=== PATIENT | male | born 1960 | race Caucasian/White ===

== ENCOUNTER → 2017-02-26 | Day surgery (SDC) | payer OTHER ==
[~2017-02-26] VITALS: Ht 175.3 cm; Wt 133.0 kg
[~2017-02-26] MED LIST: ATOR20TA15 PO; BUPIVACAINE HCL PF 0.5% 30 ML VIAL ONE; CHLORHEXIDINE GLUCONATE 2 % 1 PACK (2 CLOTHS) TOPICAL PRN; CHOL1CAP24 PO; CYCL7.5T33 PO; EMPA1TAB3 PO; EXENINJ SQ; GABA300C5 PO; GLYB5TAB3 PO; HYDR-3516 PO; HYDR1SOL6 PO; INSU1.2I SQ; INSU1INJ14 SQ; INSULIN HUMAN REGULAR 1,000 UNITS/10 ML VIAL SQ PRN; L-ME1CAP2 PO; LACTATED RINGER'S 1000 ML INJ 500 ML IV ONE; LACTATED RINGER'S 1000 ML IV PRN; LIDOCAINE HCL 2% 50 ML VIAL ONE; LISI10TA3 PO; LYRI100C PO; MELO15TA20 PO; METF750T PO; METOPROLOL TARTRATE 25 MG TAB PO PRN; MORPHINE SULFATE 2 MG/ML INJ ONE; MUPIROCIN 2% OINT 22 GM TUBE ONE; NEOMYCIN/POLYMYXIN 1 ML G.U. IRRIGANT ONE; ONDANSETRON HCL 4 MG/2 ML VIAL ONE; OXYC-255 PO; POVIDONE IODINE 5% (ANTISEPSIS KIT) 4 APPLICATIONS EACH NARE PRN; SERT-129 PO; SODIUM CHLORID 0.9% 500 ML IV PRN; TAMS0.4C4 PO; VICT18IN SQ; ceFAZolin 2 GM PREMIX 50 ML IV SCH
--- NOTE | 2017-02-26 12:49 | PD.OP ---
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
[2017-02-26 13:00] VITALS: PULSE 96
[2017-02-26 13:40] VITALS: BP 126/69; PULSE 90; RESP 16; TEMP 98.6; O2SAT 96
--- NOTE | 2017-02-27 07:04 | MP ---
cc: GOPI HARVEY MD DATE OF SURGERY 02/26/2017 PREOPERATIVE DIAGNOSIS Chronic mallet deformity, septic arthritis sequelae, distal interphalangeal joint right little finger. POSTOPERATIVE DIAGNOSIS Chronic mallet deformity, septic arthritis sequelae, distal interphalangeal joint right little finger. PROCEDURE Disarticulation distal interphalangeal joint right little finger. SURGEON Dr. Harvey ANESTHESIA General ESTIMATED BLOOD LOSS Minimal TOURNIQUET TIME 29 minutes at 250 mmHg COMPLICATIONS No complications. SPECIMEN Sent to pathology to PACU stable. INDICATIONS The patient is a 56-year-old male who was seen by me initially for septic arthritis of the right little finger more than a year ago. The patient underwent multiple surgeries with debridement. 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 He had difficulty with the use of the right hand with everyday activities because of the pain symptoms. He also had sensitivity over the dorsal aspect of the DIP joint. X-rays were negative for arthritis. Treatment options were discussed with the patient including fusion and disarticulation. The patient was not keen on fusion as he is a diabetic and would not want to take any chances regarding fusion. He elected for disarticulation through the distal interphalangeal joint. The patient was explained the risks and benefits of the procedure. PROCEDURE NOTE The patient was brought to the operating room under general anesthesia. The right upper extremity was thoroughly prepped and draped. Incision site was marked over the dorsal aspect of the DIP joint in transverse fashion and volar flap was marked on the pulp region. Limb was exsanguinated using Esmarch tourniquet. Tourniquet was then inflated to 250 mmHg. An incision was made over the dorsal aspect of the DIP joint. Incision deepened to the distal interphalangeal joint. The distal phalanx was from the pulp tissue by sharp dissection. The distal phalanx along with the dorsal aspect of the distal phalanx including the nail bed and the hyponychium was excised and specimen was sent to pathology. A thorough wash of the joint was carried out. The head of the middle phalanx was then rongeured to a smooth surface. The volar skin flap of pulp tissue was then approximated to the dorsal skin using 4-0 Vicryl stitch in an interrupted fashion. This was then followed by 5-0 nylon in a horizontal mattress interrupted fashion. Tourniquet was deflated. Total tourniquet time was 29 minutes. The patient had decreased capillary refill following release of the tourniquet. Two stitches were removed. This was then followed by a pinking up of the flap. He had good capillary refill at the end of the procedure. Xeroform bacitracin dressing applied. 2 cc of local anesthesia was injected as a digital block containing a mixture of 2% lidocaine and 0.5% Marcaine. A finger dressing was applied which was held in place by Basilio. The patient was sent to the Recovery Room in stable condition. He will follow up in [id number] days' time for dressing change. Gopi Harvey MD SE/SAMUEL /12:57 PM /6:51 AM
--- NOTE | 2017-02-27 18:26 | EKG ---
Date Performed: 02/26/2017 Time Performed: 11:21:03 PTAGE: 56 years EKG: Sinus rhythm NORMAL ECG PREVIOUS TRACING : 12/12/2014 15.12 DOCTOR: Tierney Rdz Interpretating Date/Time 02/27/2017 18:18:25
== END | disposition home or self-care (01) ==
LOC: PHSDC 09:46
PROVIDERS: ATTEND Surgery Surgery of the Hand
DX: M20.011 Mallet finger of right finger(s) (principal); M00.9 Pyogenic arthritis, unspecified; E11.9 Type 2 diabetes mellitus without complications; Z79.84 Long term (current) use of oral hypoglycemic drugs; Z01.810 Encounter for preprocedural cardiovascular examination
CPT/HCPCS: 01830; 26236; 82948; 88305; 93005; J0690; J2270; J2405; J3010; J7120